=== PATIENT | female | born 1945 | race Caucasian/White ===

== ENCOUNTER 2024-11-29 07:03 | Inpatient (IN) | payer MEDICARE, OTHER ==
[~2024-11-29] VITALS: Ht 170.2 cm; Wt 69.4 kg
[2024-11-29] MEDS ORDERED: dexaMETHasone SOD PHOSPHATE 1 ML ONE (07:25)
[2024-11-29] MEDS ORDERED: LIDOCAINE 2%-EPI 1:100,000 30 ML VIAL ONE (07:25)
[2024-11-29] MEDS ORDERED: OXYMETAZOLINE HCL NASAL SPRAY 30 ML BOTTLE NS ONE (07:26)
[2024-11-29] MEDS: VANCOMYCIN 1 GM in IV D5W 250 ML IV SCH (07:46)
[2024-11-29] MEDS ORDERED: FENTANYL PF 100MCG/2ML AMPUL ONE ×2 (07:49→09:08)
[2024-11-29] MEDS ORDERED: ROCURONIUM BROMIDE 50 MG/5 ML ONE (07:50)
[2024-11-29] MEDS ORDERED: FAMOTIDINE/PF INJ 20 MG/2 ML VIAL IV ONE (07:50)
[2024-11-29] MEDS ORDERED: ONDANSETRON HCL/PF 4 MG/2 ML VIAL IVP PRN (11:30)
[2024-11-29] MEDS ORDERED: ACETAMINOPHEN 325 MG TABLET PO PRN (11:30)
[2024-11-29] MEDS: IV NS 0.9% 1,000 ML IV PRN (11:32)
[2024-11-29] MEDS: HYDROMORPHONE 1 MG/1 ML DISP.SYRIN IV PRN (11:46)
[2024-11-29 12:00] VITALS: BP 119/65; TEMP 97.3; O2SAT 92
[2024-11-29] MEDS ORDERED: VANCOMYCIN 1 GM in IV D5W 250ml IV SCH (20:00)
== END 2024-11-29 17:21 | disposition home or self-care (01) | DRG 908 ==
LOC: DS 07:03 → MED 10:24
PROVIDERS: ADMIT Internal Medicine; ATTEND Internal Medicine
PROC: 0NUR07Z Supplement Maxilla with Autologous Tissue Substitute, Open Approach (ICD-10-PCS; 2024-11-29)
PROC: 0NPW0JZ Removal of Synthetic Substitute from Facial Bone, Open Approach (ICD-10-PCS; 2024-11-29)
PROC: 0N5V0ZZ Destruction of Left Mandible, Open Approach (ICD-10-PCS; 2024-11-29)
PROC: 0N5T0ZZ Destruction of Right Mandible, Open Approach (ICD-10-PCS; 2024-11-29)
PROC: 0N5R0ZZ Destruction of Maxilla, Open Approach (ICD-10-PCS; 2024-11-29)
PROC: 0NSV04Z Reposition Left Mandible with Internal Fixation Device, Open Approach (ICD-10-PCS; 2024-11-29)
PROC: 0NST04Z Reposition Right Mandible with Internal Fixation Device, Open Approach (ICD-10-PCS; 2024-11-29)
PROC: 0NSR0ZZ Reposition Maxilla, Open Approach (ICD-10-PCS; principal; 2024-11-29 08:30)
DX: T86.831 Bone graft failure (principal); M87.9 Osteonecrosis, unspecified; S02.609A Fracture of mandible, unspecified, initial encounter for closed fracture; S02.40CK Maxillary fracture, right side, subsequent encounter for fracture with nonunion; X58.XXXA Exposure to other specified factors, initial encounter; Y92.9 Unspecified place or not applicable; M27.2 Inflammatory conditions of jaws; J32.0 Chronic maxillary sinusitis; I10 Essential (primary) hypertension; Z90.710 Acquired absence of both cervix and uterus; Z87.11 Personal history of peptic ulcer disease; M81.0 Age-related osteoporosis without current pathological fracture; Y83.2 Surgical operation with anastomosis, bypass or graft as the cause of abnormal reaction of the patient, or of later complication, without mention of misadventure at the time of the procedure; X58.XXXD Exposure to other specified factors, subsequent encounter; J34.1 Cyst and mucocele of nose and nasal sinus
CPT/HCPCS: A4223; A4338; C1713; G0378; J1100; J1171; J2405; J2704; J3010; J3370; J3490; J7030; J7060